=== PATIENT | female | born 2000 | race Caucasian/White ===

== ENCOUNTER → 2024-01-02 | Outpatient (CLI) | payer SELFPAY ==
[2024-01-02 08:06] LABS: Absolute Lymphocyte Count 2.49 X10^3/uL (0.83-4.51); Basophil# 0.04 X10^3/uL; Basophil% 0.7 % (0-1); Eosinophil# 0.06 X10^3/uL; Hematocrit 43.1 % (37-47); Hemoglobin 14.6 g/dL (12.0-15.0); Lymphocyte # 2.49 X10^3/ul (0.83-4.51); Lymphocyte % 40.5 % (19-41); Mean Corp Hgb Conc 33.9 g/dL (32-36); Mean Corpuscular Hgb 30.5 pg (27.0-32.0); Mean Platelet Vol. 8.9 fl (6.2-12.0); Monocyte% 9.8 % (0-10); NRBC Flagged by Analyzer 0 % (0-5); Neutrophil # 2.95 X10^3/uL (2.7-7.7); Neutrophil % 47.8 % (47-70); Platelet Count 301 K/mm3 (150-450); RBC Distribution Width CV 11.6 % (11.6-14.6); RBC Distribution Width SD 38.1 fl (35.1-43.9); Red Blood Count 4.79 M/mm3 (4.2-5.4); White Blood Count 6.2 K/mm3 (4.4-11.0)
[2024-01-02 08:38] LABS: ALB/GLOB Ratio 1.3 RATIO (0.9-2.4); AST(SGOT) 14 U/L (15-37); Alanine Aminotransfer ALT/SGPT 22 U/L (13-56); Albumin, Serum 4.3 g/dL (3.2-5.0); Alkaline Phosphatase 55 U/L (45-117); Anion Gap 6 (5-15); BUN 8 mg/dL (7-18); BUN/Creat Ratio 12.2 RATIO (10-20); Calcium,Total 9.5 mg/dL (8.5-10.1); Chloride 106 mmol/L (98-107); Cholesterol 168 mg/dL (200); Creatinine, Serum 0.65 mg/dL (0.55-1.02); EST Glomerular Filtration Rate 120 mL/min (>60); Est Glom Filt Rate - Afr Amer 146 mL/min (>60); Globulin 3.4 g/dL (2.2-4.2); Glucose 96 mg/dL (74-106); High Density Lipoprotein 63 mg/dL; Potassium 3.7 mmol/L (3.5-5.1); Protein, Total 7.7 g/dL (6.4-8.2); Sodium Level 138 mmol/L (136-145); T4 Free Direct 0.97 ng/dL (0.76-1.46); Thyroid Stim Hormone (TSH) 1.63 uIU/mL (0.358-3.74); Triglycerides 50 mg/dL; Very Low Density Lipoprotein 10 mg/dL (5-40)
== END | disposition home or self-care (01) ==
LOC: LAB 07:57
PROVIDERS: Visit Provider Nurse Practitioner
DX: Z00.00 Encounter for general adult medical examination without abnormal findings (principal); N92.1 Excessive and frequent menstruation with irregular cycle
CPT/HCPCS: 36415; 80053; 80061; 84439; 84443; 85025

== ENCOUNTER 2024-05-07 10:17 | Emergency (ER) | payer OTHER, SELFPAY ==
[2024-05-07 10:17] VITALS: BP 158/96; PULSE 114; RESP 19; TEMP 36.3; O2SAT 100; BMI 30.7
--- NOTE | 2024-05-07 10:40 | EX.ED.UPPERE ---
HPI History of Present Illness HPI Narrative: 24-year-old female no seen past medical history. [id number]. Was closing a window in her home today and the window broke a piece of glass lacerated the left palm of her hand at the thenar eminence. This occurred about 2 hours ago. She believes her last tetanus shot was about 8 years ago. She like to have it updated. She denies any numbness. Does not believe there is any foreign body present. Denies any other injuries. Chief Complaint: Laceration Informant: patient Occured/Mechanism Mechanism/Context: Yes injury Onset/Context/Timing Onset: Today and Hours Context: Sudden Onset Timing: Continuous Quality of Pain: Sharp Current Severity: Mild Maximum Severity: Mild Associated Symptoms Associated Symptoms: Negative for Parasthesia, Weakness or Loss of Funtion Narrative Narrative: 24-year-old left palm laceration. Tetanus Immunization: 5-10 years Prior similar symptoms: No Recent Illness/Hospitalization: No PFSH PFSH Medical History no medical history no medical history Home Medications ?Medication ?Instructions ?Recorded ?Last Taken ?Type spironolactone 25 mg tablet 25 mg PO DAILY #120 tabs 01/01/24 Unknown Rx Allergy/AdvReac Type Severity Reaction Status Date / Time No Known Allergies Allergy Verified 05/07/24 10:31 Social History adopted: No household members: spouse current occupational status: employed current occupation: [employer] pets and animals: Yes pets and animals: cat(s) sexually active: Yes Smoking Status: Never smoker alcohol intake: never substance use type: does not use caffeine: No frequency: 3-4 times per week do you feel safe at home: Yes ROS ROS ED ROS Narrative Denies recent illness. Constitutional Constitutional ED: Denies chills or fever(s) Eyes Eyes: Denies blurry vision ENT ENT ED: Denies ear pain Cardiovascular Cardiovascular: Denies chest pain Respiratory/Chest Respiratory/Chest: Denies cough Gastrointestinal Gastrointestinal: Denies abdominal pain Genitourinary Genitourinary ED: Denies dysuria or hematuria Musculoskeletal Musculoskeletal: Denies back pain Integumentary Denies abscess Neurologic Neurologic: Denies headache(s) Psychiatric Psychiatric: Denies anxiety Endocrine Endocrinology: Denies cold intolerance Hematologic/Lymphatic Hematologic/Lymphatic: Denies easy bleeding Allergic/Immunologic Allergic/Immunologic ED: Denies mouth swelling EXAM Physical Exam Narrative Exam Narrative: 22-year-old female no acute distress vital signs stable afebrile. HEENT exam unremarkable. Lungs clear. Heart regular rhythm no murmur. Abdomen soft nontender. Moving all 4 extremities. Neurovascularly intact. Left hand specifically the palm and thenar eminence there is a laceration is approximately an inch in length. It is somewhat jagged. There is also a smaller laceration parallel to that 1. Minor bleeding. Small oozing. No pulsatile bleeding no large hematoma. She has full flexion extension all digits of the hand. Full flexion extension of the left thumb. Normal sensation and capillary refill of all digits. No signs of a foreign body. No infection. Otherwise exam unremarkable. Const Vital Signs: 05/07/24 10:17 Temperature 97.3 F L Temperature Source Temporal Pulse Rate 114 H Respiratory Rate 19 H Blood Pressure 158/96 H Blood Pressure Mean 116 Pulse Ox 100 Oxygen Delivery Method Room Air Positive well nourished and well developed; Negative for cachectic, contractures or unkempt General Appearance ED: well developed and NAD; Negative for unkempt, cachectic, contractures, cyanotic or diaphoretic Nutritional Appearance: Negative for cachectic HEENT Reports moist mucous membranes normocephalic and atraumatic; Negative for trauma Eyes PERRL and EOMs intact bilaterally Neck full ROM and supple Chest Wall inspection of chest normal and palpation of chest normal Resp normal respiratory effort and clear to auscultation bilaterally Auscultation: Negative for rales, rhonchi or wheezes Cardio regular rate, regular rhythm, S1 normal heart sound, S2 normal heart sound and no murmurs Rate: Negative for bradycardia or tachycardic Rhythm: Negative for abnormal rhythm GI non-tender, non-distended and no masses Palpation: soft; Negative for tender, guarding or rebound tenderness present Back/Spine no CVA tenderness Extremity normal to inspection and full ROM Extremity Narrative: Left hand, palm, thenar eminence has 2 lacerations in parallel. Larger ones about an inch. The smaller one is about a centimeter or so. Mild oozing. No pulsatile bleeding. No thenar hematoma. No infection. Full range of motion to all digits of the left hand including the thumb. Normal cap refill. Normal sensation. General Extremety ED: Negative for edema General Extremity: Negative for edema Neuro oriented x3, CN's II-XII intact bilaterally, moves all extremities, no focal motor deficits and no sensory deficits noted Sensorium / Orientation: alert, oriented to person, oriented to place and oriented to time; Negative for orientation impaired, lethargic or stuporous Motor Exam: strength 5/5 throughout Psych mental status grossly normal Appearance: Negative for unkempt Attitude: No agitated Mood & Affect: Negative for depressed, anxious or tearful Skin Skin Narrative: Left palm thenar eminence laceration. General Skin Exam: Negative for petechiae Lesions: no lesions Rashes: no rashes Trauma: laceration; Negative for no lacerations or abrasions MDM MDM MDM Narrative Medical decision making narrative: 24-year-old female [id number] left palm laceration will need repaired. Tetanus will be updated. Wound to be locally anesthetized with lidocaine. Cleaned with Shur-Clens. Washed and irrigated with saline and explored. Closed using 4-0 simple Ethilon suture. Both hand lacerations were closed using 4-0 Ethilon suture. Patient tolerated well. She was given instructions on suture removal and wound care. Follow-up with any signs of infection. Tetanus was updated. History & Record Review Discussion w/independent historian: Patient Procedures Lacerations Left hand laceration repair:: Length: 1 in Depth: Sub Q Shape: Linear Prep: Shure-Clens Laceration repair: Lidocaine and Skin sutures Suture Information: Ethilon and 4-0 Comment: Left palm laceration thenar eminence about 1 inch. Closed using 4, simple interrupted 4-0 Ethilon sutures. Proper hemostasis wound closure obtained. Patient tolerated procedure well. There was a second smaller laceration about half an inch. It had mild consistent oozing of blood. It was locally anesthetized with lidocaine. Washed with Shur-Clens irrigated with saline. Explored. No foreign body. Closed using 2 simple interrupted 4-0 Ethilon sutures. Discharge Plan Triage Chief Complaint: Laceration ED Provider: Bear Sanders Dx/Rx/DC Orders Clinical Impression: Hand laceration Instructions: ED Laceration, Hand: All Closures Prescriptions: No Action spironolactone 25 mg tablet 25 mg PO DAILY Qty: 120 0RF Rx Instructions: Take one tablet by mouth in the morning x1 week, then increase to 2 tablets (50 mg) by mouth each morning Primary Care Provider: Katy Wu Referrals: NOT,DEFINED [Non-Staff] - Katy Wu, [facility] [Primary Care Provider] - 10-14 Days suture removal Activity Restrictions/Additional Instructions: Ice and elevate. Motrin and Tylenol for pain as needed. Take your ring off to prevent it being stuck on your finger if it swells up. Stitches out in 10 to 14 days. Watch for any signs of infection such as pus, significant swelling, redness, fever or streaks of seen return. Tetanus is updated good for 10 years. Print Language: Italian Disposition Disposition: Home, Self Care
[2024-05-07] MEDS: Lidocaine 1% (20 ml mdv) 20 ML Vial 10 ML INFILT (10:54)
[2024-05-07] MEDS: Diphth,Pertuss(Acell),Tet Vac 0.5 ML Vial IM (10:54)
[2024-05-07 11:23] VITALS: BP 137/79; PULSE 62; RESP 15; TEMP 36.1; O2SAT 99
== END 2024-05-07 11:25 | disposition home or self-care (01) ==
PROVIDERS: Emergency Provider Emergency Medicine; PCP Nurse Practitioner; Visit Provider Emergency Medicine
DX: S61.412A Laceration without foreign body of left hand, initial encounter (principal); W25.XXXA Contact with sharp glass, initial encounter; Z23 Encounter for immunization
CPT/HCPCS: 12001; 90715; 99284

== ENCOUNTER → 2024-05-09 | Outpatient (CLI) | payer OTHER, SELFPAY ==
[2024-05-17 08:24] LABS: HPV Reflexed? NOT INDICATED
== END | disposition home or self-care (01) ==
LOC: LABSPEC 15:59
PROVIDERS: PCP Nurse Practitioner; Referring Provider Nurse Practitioner Family; Visit Provider Nurse Practitioner Family
DX: Z12.4 Encounter for screening for malignant neoplasm of cervix (principal)
CPT/HCPCS: 88175; G0145